=== PATIENT | male | born 1945 | race Caucasian/White ===

== ENCOUNTER 2019-02-12 17:24 | Emergency (ER) | payer OTHER ==
[2019-02-12 17:52] VITALS: BP 147/78
--- NOTE | 2019-02-12 18:20 | UC ---
Minor Trauma HPI - HPI Summary HPI Summary: The patient is a 73-year-old male who injured his left hamstring today while hiking. He states he tripped over a log. He was able to hike back to the parking lot using walking sticks. His pain is worse when sitting due to pressure on his hamstring. He denies any other injury. He has taken some ibuprofen and it has helped. He is unable to tolerate Aleve due to tinnitus. - History of Current Complaint Chief Complaint: UCLowerExtremity Stated Complaint: LEFT THIGH PAIN Time Seen by Provider: 02/12/19 18:11 Hx Obtained From: Patient Onset/Duration: Sudden Onset, Lasting Hours Onset Of Pain: Immediate Severity Initially: Moderate Severity Currently: Mild Pain Intensity: 3 Pain Scale Used: 0-10 Numeric Mechanism Of Injury: Fall From A Standing Position Aggravating Factor(s): Ambulation, Other: - sitting Alleviating Factor(s): Rest Body - Head: 1 - pain and tenderness here - Allergies/Home Medications Allergies/Adverse Reactions: Allergies Allergy/AdvReac Type Severity Reaction Status Date / Time aspartame Allergy Headache Verified 02/12/19 17:53 azithromycin [From Zithromax] Allergy GI Upset Verified 02/12/19 17:53 ofloxacin [From Ocuflox] Allergy Swelling Verified 02/12/19 17:53 Penicillins Allergy Edema Verified 02/12/19 17:53 pravastatin Allergy See Comment Verified 02/12/19 17:53 shellfish derived Allergy Itching Verified 02/12/19 17:53 PMH/Surg Hx/FS Hx/Imm Hx Previously Healthy: Yes Endocrine History: Dyslipidemia Cardiovascular History: Hypertension - Surgical History Surgical History: Yes Surgery Procedure, Year, and Place: quadricep tendon rupture on right leg. skin growths removed. meniscus tear left - Family History Known Family History: Positive: Hypertension - Social History Alcohol Use: Rare Substance Use Type: None Smoking Status (MU): Former Smoker When Did the Patient Quit Smoking/Using Tobacco: 50 years ago Review of Systems All Other Systems Reviewed And Are Negative: Yes Constitutional: Positive: Negative Skin: Positive: Negative Eyes: Positive: Negative ENT: Positive: Negative Respiratory: Positive: Negative Cardiovascular: Positive: Negative Gastrointestinal: Positive: Negative Genitourinary: Positive: Negative Motor: Positive: Negative Neurovascular: Positive: Negative Musculoskeletal: Positive: Myalgia - left hamstring tenderness Neurological: Positive: Negative Psychological: Positive: Negative Physical Exam Triage Information Reviewed: Yes Appearance: Well-Appearing, No Pain Distress, Well-Nourished Vital Signs: Initial Vital Signs Temp 98.0 F 02/12/19 17:45 Pulse 70 02/12/19 17:45 Resp 18 02/12/19 17:45 BP 147/78 02/12/19 17:45 Pulse Ox 98 02/12/19 17:45 Vital Signs Reviewed: Yes Eyes: Positive: Conjunctiva Clear ENT: Positive: Hearing grossly normal. Negative: Nasal congestion, Nasal drainage, Trismus, Muffled voice, Hoarse voice Dental Exam: Normal Neck: Positive: Supple, Nontender Respiratory: Positive: Lungs clear, Normal breath sounds, No respiratory distress Cardiovascular: Positive: RRR. Negative: No Murmur Musculoskeletal: Positive: ROM Intact, No Edema, Other: - no pain with axial compression of thigh, distal n/v intact Neurological: Positive: Alert Psychological Exam: Normal Skin Exam: Normal Minor Trauma Course/Dx - Differential Dx/Diagnosis Provider Diagnosis: Left hamstring muscle strain Discharge ED - Sign-Out/Discharge Documenting (check all that apply): Patient Departure All imaging exams completed and their final reports reviewed: No Studies - Discharge Plan Condition: Stable Disposition: HOME Patient Education Materials: Hamstring Injury (ED), R.I.C.E. Treatment (ED) Referrals: Hussain Gonzalez MD [Primary Care Provider] - 4 Days (recheck in -10 ) Additional Instructions: ice at least twice daily advil sia remove at bedtime recheck with your MD if not improving - Billing Disposition and Condition Condition: STABLE Disposition: Home
== END 2019-02-12 18:34 | disposition home or self-care (01) ==
LOC: UCEAST 17:24
DX: S76.912A Strain of unspecified muscles, fascia and tendons at thigh level, left thigh, initial encounter (principal); I10 Essential (primary) hypertension; Z88.1 Allergy status to other antibiotic agents; Z88.0 Allergy status to penicillin; Z88.8 Allergy status to other drugs, medicaments and biological substances; Z91.013 Allergy to seafood; Z87.891 Personal history of nicotine dependence; W18.41XA Slipping, tripping and stumbling without falling due to stepping on object, initial encounter; Y92.481 Parking lot as the place of occurrence of the external cause
CPT/HCPCS: 99211; G0463